=== PATIENT | male | born 1955 | race Caucasian/White ===

== ENCOUNTER → 2019-07-03 08:15 | Outpatient (CLI) | payer BC, SELFPAY ==
[2019-07-03 10:39] LABS: ALB/GLOB Ratio 1.2 RATIO (0.9-2.4); AST(SGOT) 20 U/L (15-37); Alanine Aminotransfer ALT/SGPT 29 U/L (16-61); Albumin, Serum 3.8 g/dL (3.2-5.0); Alkaline Phosphatase 78 U/L (45-117); Anion Gap 5 (5-15); BUN 10 mg/dL (7-18); BUN/Creat Ratio 11.3 RATIO (10-20); Calcium,Total 8.4 mg/dL (8.5-10.1); Chloride 108 mmol/L (98-107); Cholesterol 192 mg/dL (200); Creatinine, Serum 0.89 mg/dL (0.70-1.30); EST Glomerular Filtration Rate 92 mL/min (>60); Est Glom Filt Rate - Afr Amer 111 mL/min (>60); Globulin 3.1 g/dL (2.2-4.2); Glucose 89 mg/dL (74-106); High Density Lipoprotein 56 mg/dL; Potassium 4.2 mmol/L (3.5-5.1); Protein, Total 6.9 g/dL (6.4-8.2); Sodium Level 141 mmol/L (136-145); Triglycerides 75 mg/dL; Very Low Density Lipoprotein 15 mg/dL (5-40)
== END ==
PROVIDERS: Family Provider Family Medicine; PCP Family Medicine; Referring Provider Family Medicine; Visit Provider Family Medicine
DX: E78.5 Hyperlipidemia, unspecified (principal)
CPT/HCPCS: 36415; 80053; 80061; 86141

== ENCOUNTER → 2019-07-30 11:44 | Outpatient (CLI) | payer BC, SELFPAY ==
--- NOTE | 2019-07-30 11:50 | RAD_ITS ---
STUDY: X-RAY - CERVICAL SPINE REASON FOR EXAM: Male, 64 years old. Neck pain TECHNIQUE: 3 view(s) of the cervical spine were obtained. COMPARISON: None FINDINGS: Normal anterior atlantoaxial articulation. Normal odontoid process. Decreased cervical lordosis. No evidence for acute fracture or subluxation. There is narrowing of C3-4 and C5-6 disc space with associated multilevel endplate spurring. The soft tissue structures are unremarkable. RAD/Cerv Spine 2 or 3 Views IMPRESSION: Mild spondylosis. No evidence for acute fracture or other significant bony pathology. Electronically Signed: Grayson Yeh MD at 16:44 EST , Service support ,
== END ==
PROVIDERS: Family Provider Family Medicine; PCP Family Medicine; Referring Provider Chiropractor Orthopedic; Visit Provider Chiropractor Orthopedic
DX: S16.1XXA Strain of muscle, fascia and tendon at neck level, initial encounter (principal)
CPT/HCPCS: 72040

== ENCOUNTER → 2019-10-12 08:10 | Outpatient (CLI) | payer BC, SELFPAY ==
[2019-10-12 11:11] LABS: CRP, High Sensitivity Cardiac 0.54 mg/L; Cholesterol 126 mg/dL (200); High Density Lipoprotein 51 mg/dL; Triglycerides 69 mg/dL; Very Low Density Lipoprotein 14 mg/dL (5-40)
== END ==
LOC: MFPLAB 08:11
PROVIDERS: PCP Family Medicine; Referring Provider Family Medicine; Visit Provider Family Medicine
DX: R79.82 Elevated C-reactive protein (CRP) (principal)
CPT/HCPCS: 36415; 80061; 86141

== ENCOUNTER → 2020-09-03 | Outpatient (CLI) | payer BC, SELFPAY | END | disposition home or self-care (01) | LOC: LABSPEC 16:04 | PROVIDERS: PCP Family Medicine; Referring Provider Family Medicine; Visit Provider Nurse Practitioner Adult Health | DX: Z20.828 Contact with and (suspected) exposure to other viral communicable diseases (principal) | CPT/HCPCS: 87635; U0003 ==

== ENCOUNTER → 2021-07-09 10:31 | Outpatient (CLI) | payer BC, SELFPAY ==
[2021-07-09 12:31] LABS: Cholesterol 222 mg/dL (200); Creatinine, Serum 0.88 mg/dL (0.70-1.30); EST Glomerular Filtration Rate 92 mL/min (>60); Est Glom Filt Rate - Afr Amer 112 mL/min (>60); High Density Lipoprotein 52 mg/dL; Triglycerides 110 mg/dL; Very Low Density Lipoprotein 22 mg/dL (5-40)
[2021-07-09 13:08] LABS: Hepatitis C Antibody Non-Reactive (Nonreactive)
== END ==
PROVIDERS: PCP Family Medicine; Referring Provider Family Medicine; Visit Provider Family Medicine
DX: Z00.00 Encounter for general adult medical examination without abnormal findings (principal); Z11.59 Encounter for screening for other viral diseases
CPT/HCPCS: 36415; 80061; 82565; 86803

== ENCOUNTER → 2023-07-22 | Outpatient (CLI) | payer MEDICARE, SELFPAY ==
[2023-07-22 10:37] LABS: ALB/GLOB Ratio 1.2 RATIO (0.9-2.4); AST(SGOT) 17 U/L (15-37); Alanine Aminotransfer ALT/SGPT 30 U/L (16-61); Albumin, Serum 3.8 g/dL (3.2-5.0); Alkaline Phosphatase 83 U/L (45-117); Anion Gap 2 (5-15); BUN 5 mg/dL (7-18); BUN/Creat Ratio 5.6 RATIO (10-20); Calcium,Total 8.7 mg/dL (8.5-10.1); Chloride 105 mmol/L (98-107); Cholesterol 220 mg/dL (200); Creatinine, Serum 0.89 mg/dL (0.70-1.30); EST Glomerular Filtration Rate 90 mL/min (>60); Est Glom Filt Rate - Afr Amer 109 mL/min (>60); Globulin 3.3 g/dL (2.2-4.2); Glucose 86 mg/dL (74-106); High Density Lipoprotein 52 mg/dL; Potassium 4.5 mmol/L (3.5-5.1); Protein, Total 7.1 g/dL (6.4-8.2); Sodium Level 137 mmol/L (136-145); Triglycerides 172 mg/dL; Very Low Density Lipoprotein 34 mg/dL (5-40)
== END | disposition home or self-care (01) ==
LOC: MFPLAB 08:13
PROVIDERS: PCP Family Medicine; Visit Provider Family Medicine
DX: E78.5 Hyperlipidemia, unspecified (principal)
CPT/HCPCS: 36415; 80053; 80061

== ENCOUNTER → 2023-07-25 | Outpatient (CLI) | payer MEDICARE, SELFPAY ==
--- NOTE | 2023-07-25 09:58 | RAD_ITS ---
STUDY: X-RAY - LEFT ELBOW REASON FOR EXAM: Male, 68 years old. Lateral left elbow pain. TECHNIQUE: 3 view(s) of the elbow. COMPARISON: None. FINDINGS: Osteopenia. Normal visualized humerus, radius and ulna. Normal radiocapitellar and ulnotrochlear articulations. Normal soft tissues. RAD/Elbow min 3 Views IMPRESSION: Osteopenia. Otherwise normal x-ray examination of the elbow. Electronically Signed: Barry Sosa MD at 13:55 EST ,
== END | disposition home or self-care (01) ==
LOC: MTRAD 09:48
PROVIDERS: PCP Family Medicine; Referring Provider Family Medicine; Visit Provider Family Medicine
DX: M77.12 Lateral epicondylitis, left elbow (principal)
CPT/HCPCS: 73080

== ENCOUNTER → 2023-08-25 | Outpatient (CLI) | payer MEDICARE, SELFPAY ==
--- NOTE | 2023-08-25 10:10 | BD_ITS ---
STUDY: DUAL ENERGY X-RAY ABSORPTIOMETRY / DXA REASON FOR EXAM: Male, 68 years old. 733.90OsteopeniaBONE DENSITY REASON FOR EXAM TECHNIQUE: Bone Mineral Density (BMD) measurements of lumbar spine and bilateral hips were obtained. COMPARISON: None. FINDINGS: Lumbar Spine (L1-L4): g/cm2 (0.959) / T-score (-0.9) / Z-score (-0.1) Findings are suggestive of normal bone density with a low fracture risk. Left Femur Total: g/cm2 (1.039) / T-score (0.0) / Z-score (0.6) Left Femoral Neck: g/cm2 (0.848) / T-score (-0.6) / Z-score (0.5) Right Femur Total: g/cm2 (1.010) / T-score (-0.2) / Z-score (0.4) Right Femoral Neck: g/cm2 (0.791) / T-score (-1.0) / Z-score (0.1) BD/Dexa Bone Density Study IMPRESSION: The patient is considered normal as outlined below according to World Dragan Organization (WHO) criteria with a low fracture risk. Reference Information: The T-score is the number of standard deviations above or below the standard which is normal for young adults at their peak bone mineral density. The World Health Organization (WHO) interprets the T-scores as follows: Above -1 Normal bone density Between -1 and -2.5 Osteopenia Equal to / or below -2.5 Osteoporosis As a practical clinical guideline, osteopenia may be graded as follows: Mild -1 through -1.5 Moderate -1.6 through -2.0 Severe -2.1 through -2.4 The Z-score is the number of standard deviations above or below age-matched controls. A Z-score of less than -1.5 would be considered abnormal. References: 1. NIH Osteoporosis and Related Bone Diseases www osteo.org 2. International Society for Clinical Densitometry www iscd.org 3. National Osteoporosis Foundation www nof.org Electronically Signed: Rafi Hamm MD at 13:27 EST ,
== END | disposition home or self-care (01) ==
PROVIDERS: PCP Family Medicine; Referring Provider Family Medicine; Visit Provider Family Medicine
DX: M85.80 Other specified disorders of bone density and structure, unspecified site (principal)
CPT/HCPCS: 77080

== ENCOUNTER → 2023-10-24 | Outpatient (CLI) | payer MEDICARE, SELFPAY ==
--- OUTSIDE RECORDS SUMMARY | 2023-10-24 08:28 | XMS RPT_ITS | CCD ---
Author Name Unknown Address [address] [place] [address] Organization [facility] Results Test Name Value Interpretation Reference Range Facil ity Summary Purpose Family History No Family History Records Found Advance Directives No Advanced Directives Records Found Additional Source Comments (unrecognized sect ion and content) No Status Records Found INFORMATION SOURCE (unrecogn ized section and content) FOR RECORDS PERTAINING TO PATIENTS WHO ARE OR HAVE BEEN ENROLLED IN A CHEMICAL DEPENDENCY/SUBSTANCEABUSE PROGRAM, SOME INFORMATION MAY BE OMITTED. This clinical summary was aggregated from multiple sources. Caution should be exercised in using it in the provision of clinical care. This summary normalizes information from multiple sources, and as a consequence, information in this document may materially change the coding, format and clinical context of patient data. In addition, data may be omitted in some cases. CLINICAL DECISIONS SHOULD BE BASED ON THE PRIMARY CLINICAL RECORDS. [employer] provides no warranty or guarantee of the accuracy or completeness of information in this document.
[2023-10-24 10:34] LABS: Cholesterol 204 mg/dL (200); High Density Lipoprotein 56 mg/dL; Triglycerides 101 mg/dL; Very Low Density Lipoprotein 20 mg/dL (5-40)
== END | disposition home or self-care (01) ==
LOC: MFPLAB 08:04
PROVIDERS: PCP Family Medicine; Visit Provider Family Medicine
DX: Z12.5 Encounter for screening for malignant neoplasm of prostate (principal); E78.5 Hyperlipidemia, unspecified
CPT/HCPCS: 36415; 80061; 84153; G0103

== ENCOUNTER 2024-03-14 09:42 | Emergency (ER) | payer MEDICARE, SELFPAY ==
[2024-03-14 09:42] VITALS: BP 155/120; PULSE 61; RESP 19; TEMP 35.8; O2SAT 100; BMI 29.3
--- NOTE | 2024-03-14 10:07 | EKG12_ITS ---
Test Reason : Blood Pressure : / mmHG Vent. Rate : 056 BPM Atrial Rate : 056 BPM P-R Int : 238 ms QRS Dur : 086 ms QT Int : 426 ms P-R-T Axes : 029 012 025 degrees QTc Int : 411 ms Sinus bradycardia with 1st degree A-V block Low voltage QRS Borderline ECG Confirmed by Kota Mcfarlane ([id number]), primer expeditor and drier SYDNEY WHITE ([id number]) on 03/15/2024 11:09:50 AM Referred By: Confirmed By:Kota Mcfarlane
--- NOTE | 2024-03-14 10:08 | ED.VIS.CHEST ---
HPI History of Present Illness Chief Complaint: Dizziness Narrative Narrative: 68-year-old male presenting with symptoms of lightheadedness. He states that he had vertigo before and does not feel the same. He states it started just after he woke up this morning and he feels like he is off balance. He states that he has been having a little bit of chest discomfort on the left side for 3 days and has been pretty persistent. He describes it as sharp. Patient states he is also been coughing a lot for the last few days. He has been traveling by car to [place] and [place] to visit people and he does not know if he is an exposed anything. No history of DVT/PE. No history of cardiac disease. 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 Patient also states that he has had some mild numbness in the midfoot on the right foot for 6 months. He has not had this looked at yet. He denies any injury and states that he has been running without any difficulty. PE Risk Factors: Positive for Recent Travel/Surgery; Negative for Recent Immobilization, Prior DVT or PE, Cancer or OCP + Smoking + >/=35 PFSH PFSH Home Medications ?Medication ?Instructions ?Recorded ?Last Taken ?Type meclizine 25 mg tablet 25 mg PO TID PRN dizziness #30 tabs 03/14/24 Unknown Rx Allergy/AdvReac Type Severity Reaction Status Date / Time No Known Allergies Allergy Verified 03/14/24 09:43 Surgical History (Updated 03/14/24 @ 10:24 by Khoi Bowers) History of hernia surgery Hx of cataract surgery Social History Smoking Status: Never smoker ROS ROS ED Constitutional Constitutional ED: Denies chills or fever(s) Eyes Eyes: Denies blurry vision or change in vision ENT ENT ED: Denies ear pain or sore throat Cardiovascular Cardiovascular: Reports chest pain and other Details: Lightheadedness ; Denies palpitations or racing heartbeat Respiratory/Chest Respiratory/Chest: Reports cough; Denies dyspnea or sputum Gastrointestinal Gastrointestinal: Denies abdominal pain, constipation, diarrhea, nausea or vomiting Genitourinary Genitourinary ED: Denies dysuria, hematuria or urinary frequency Musculoskeletal Musculoskeletal: Denies arthralgias, myalgias or neck pain Integumentary Denies abscess, Abrasions or rash Neurologic Neurologic: Reports other; Denies headache(s), paresthesias or weakness Psychiatric Psychiatric: Denies anxiety, depression, suicidal ideation or suicidal thoughts Endocrine Endocrinology: Denies polydipsia or polyuria EXAM Physical Exam Const Vital Signs: 03/14/24 09:42 03/14/24 10:24 03/14/24 11:16 Temperature 96.4 F L Temperature Source Temporal Pulse Rate 61 Pulse Rate [Lying] 63 Pulse Rate [Sitting (for 1 minute prior to obtaining)] 61 Pulse Rate [Standing (for 1 minute prior to obtaining)] 61 Respiratory Rate 19 H Blood Pressure 155/120 H Blood Pressure [Lying] 131/83 H Blood Pressure [Sitting (for 1 minute prior to obtaining)] 142/89 H Blood Pressure [Standing (for 1 minute prior to obtaining)] 142/89 H Blood Pressure Mean 131 Blood Pressure Mean [Lying] 99 Blood Pressure Mean [Sitting (for 1 minute prior to obtaining)] 106 Blood Pressure Mean [Standing (for 1 minute prior to obtaining)] 106 Pulse Ox 100 Oxygen Delivery Method Room Air Room Air 03/14/24 11:52 Temperature Temperature Source Pulse Rate 55 L Pulse Rate [Lying] Pulse Rate [Sitting (for 1 minute prior to obtaining)] Pulse Rate [Standing (for 1 minute prior to obtaining)] Respiratory Rate 12 Blood Pressure 142/79 H Blood Pressure [Lying] Blood Pressure [Sitting (for 1 minute prior to obtaining)] Blood Pressure [Standing (for 1 minute prior to obtaining)] Blood Pressure Mean 100 Blood Pressure Mean [Lying] Blood Pressure Mean [Sitting (for 1 minute prior to obtaining)] Blood Pressure Mean [Standing (for 1 minute prior to obtaining)] Pulse Ox Oxygen Delivery Method Positive well nourished General Appearance ED: NAD; Negative for pallor HEENT Reports moist mucous membranes Eyes PERRL and EOMs intact bilaterally Chest Wall inspection of chest normal and palpation of chest normal Resp normal respiratory effort and clear to auscultation bilaterally Auscultation: Negative for rales, rhonchi or wheezes Cardio regular rate and regular rhythm Extremity Extremity Narrative: There is some numbness in the dorsum of the right midfoot which does not extend into the toes. Pedal pulses 2+. Otherwise neurovascular intact with prescribed refill all 5 toes. No tenderness. Neuro oriented x3 and CN's II-XII intact bilaterally Sensorium / Orientation: awake and alert Psych mental status grossly normal Skin General Skin Exam: Negative for jaundice or pallor MDM MDM MDM Narrative Medical decision making narrative: Patient presenting with chest pain and lightheadedness. He states the chest pain started first about 3 days ago when he woke up this morning with lightheadedness. On examination when I do the Jaycob-Hallpike procedure he does have nystagmus but he states his dizziness has not worsened with the [place]-Hallpike. Differential includes but is not limited to ACS, PE, pneumonia, pneumothorax, muscle strain, costochondritis, COVID, influenza, RSV, orthostatic hypotension, vertigo. CBC will be obtained to assess white blood cell count, hemoglobin, platelets. BMP to assess renal function, electrolytes, glucose. High-sensitivity troponin and EKG to assess for ischemia/dysrhythmia. Chest x-ray to rule out pneumonia. D-dimer to assess for PE. Patient is nauseous so I will give him meclizine and Zofran to see if this actually helps his dizziness. As far as his foot numbness we discussed this at length and I will give him follow-up with podiatry if he wants to pursue the problem. He is amenable to this. 11:31 AM discussed patient's lab work with him. We discussed that his blood work was relatively normal and his D-dimer was negative. High-sensitivity opponent 6. EKG interpreted by myself shows a sinus rhythm at 56 bpm with first-degree AV block. Chest x-ray on my interpretation I do not see anything acute however the radiologist thinks he sees a nodular opacity in the right lung and recommends a lateral view which was ordered. This is pending. COVID, RSV, influenza negative. He was obtained and has no evidence of nodule or other acute findings on my interpretation. Radiology interpretation agrees. Patient is feeling better with the meclizine so I will find a prescription for this. I would have him follow-up with podiatry for his foot. Lab Data Labs: Laboratory Results - last 24 hr 03/14/24 10:15 WBC 7.5 RBC 4.61 Hgb 14.0 Hct 41.4 MCV 89.8 MCH 30.4 MCHC 33.8 RDW Std Deviation 40.6 RDW Coeff of [place] 12.3 Plt Count 335 MPV 8.0 Immature Gran % (Auto) 0.500 Neut % (Auto) 83.4 H Lymph % (Auto) 9.4 L Taylor % (Auto) 5.9 Eos % (Auto) 0.5 Baso % (Auto) 0.3 Absolute Neuts (auto) 6.3 Absolute Lymphs (auto) 0.71 L Nucleated RBC % 0 D-Dimer Quant (PE/DVT) 0.37 Sodium 133 L Potassium 4.0 Chloride 103 Carbon Dioxide 25.0 Anion Gap 5 BUN 5 L Creatinine 0.83 Estim Creat Clear Calc 104.79 Est GFR (MDRD) Af Amer 119 Est GFR (MDRD) Non-Af 99 BUN/Creatinine Ratio 6.1 L Glucose 128 H Calcium 8.6 Troponin I High Sens 6 Radiography Diagnostic Testing: Clinical Impression(s) from Imaging Studies Chest X-Ray 03/14/24 10:45 IMPRESSION: Indeterminate nodular opacity within the right upper lung, may reflect a confluence of shadows, recommend PA and lateral images for further evaluation. Electronically Signed: Alia Burgos MD at 10:56 EDT Reading Location ID and State: [facility] / [place] Tel , Service support , Chest X-Ray 03/14/24 11:40 IMPRESSION: No radiographic evidence of acute cardiopulmonary disease. Electronically Signed: Alia Burgos MD at 12:00 EDT , Discharge Plan Triage Chief Complaint: Dizziness ED Provider: Reece Galeano Dx/Rx/DC Orders Instructions: ED Chest Pain, Noncardiac, ED Vertigo, Unspecified, ED Paraesthesias Prescriptions: New meclizine 25 mg tablet 25 mg PO TID PRN (Reason: dizziness) Qty: 30 0RF Primary Care Provider: Baldev Brito Referrals: Baldev Brito MD [Primary Care Provider] - Garry Resendiz DPM [Med Staff - Active Staff] - As Needed Print Language: Citizen Of [place] Disposition Disposition: Home, Self Care
--- NOTE | 2024-03-14 10:11 | ED.RN ---
NO OLD EKGS
[2024-03-14] MEDS: Ondansetron 4 MG/2 ML Vial IV (10:19)
[2024-03-14] MEDS: Meclizine HCl 25 MG Tablet PO (10:19)
[2024-03-14 10:28] LABS: Absolute Lymphocyte Count 0.71 X10^3/uL (0.83-4.51); Absolute Neutrophil Count 6.3 X10^3/uL (2.0-7.7); Basophil# 0.02 X10^3/uL; Basophil% 0.3 % (0-1); Eosinophil# 0.04 X10^3/uL; Eosinophils% 0.5 % (0-5); Hematocrit 41.4 % (40-54); Lymphocyte # 0.71 X10^3/ul (0.83-4.51); Lymphocyte % 9.4 % (19-41); Mean Corp Hgb Conc 33.8 g/dL (32-36); Mean Corpuscular Hgb 30.4 pg (27.0-32.0); Mean Corpuscular Volume 89.8 fL (80-94); Monocyte# 0.44 X10^3/uL; Monocyte% 5.9 % (0-10); NRBC Flagged by Analyzer 0 % (0-5); Neutrophil # 6.27 X10^3/uL (2.7-7.7); Neutrophil % 83.4 % (47-70); Platelet Count 335 K/mm3 (150-450); RBC Distribution Width CV 12.3 % (11.6-14.6); RBC Distribution Width SD 40.6 fl (35.1-43.9); Red Blood Count 4.61 M/mm3 (4.6-6.2); White Blood Count 7.5 K/mm3 (4.4-11.0)
[2024-03-14 10:38] LABS: D-Dimer Quantitative (DVT/PE) 0.37 FEU/ug/m (0.27-0.49)
--- NOTE | 2024-03-14 10:45 | RAD_ITS ---
INDICATION: chest pain EXAMINATION/TECHNIQUE: X-RAY - XR Chest 1 View COMPARISON: CT of the abdomen and pelvis dated March 08, 2006 FINDINGS: LINES/DEVICES: None. LUNGS: There is a nodular opacity within the right upper lung. There is stable elevation of the right hemidiaphragm. No pneumothorax. MEDIASTINUM AND CARDIOVASCULAR STRUCTURES: Cardiac silhouette not enlarged. Central airways and mediastinal contour are unremarkable. BONES AND SOFT TISSUES: Unremarkable. RAD/Chest 1 View (Portable) IMPRESSION: Indeterminate nodular opacity within the right upper lung, may reflect a confluence of shadows, recommend PA and lateral images for further evaluation. Electronically Signed: Alia Burgos MD at 10:56 EDT ,
[2024-03-14 10:50] LABS: Anion Gap 5 (5-15); BUN 5 mg/dL (7-18); BUN/Creat Ratio 6.1 RATIO (10-20); Calcium,Total 8.6 mg/dL (8.5-10.1); Chloride 103 mmol/L (98-107); Creatinine, Serum 0.83 mg/dL (0.70-1.30); EST Glomerular Filtration Rate 99 mL/min (>60); Est Glom Filt Rate - Afr Amer 119 mL/min (>60); Estimated Creatinine Clearance 104.79 ml/min; Glucose 128 mg/dL (74-106); Sodium Level 133 mmol/L (136-145); Troponin-I HS 6 pg/mL (3.0-78.0)
[2024-03-14 11:16] VITALS: BP 131/83; BP 142/89; PULSE 61; PULSE 63
--- NOTE | 2024-03-14 11:40 | RAD_ITS ---
INDICATION: cough EXAMINATION/TECHNIQUE: X-RAY - XR Chest 1 lateral image COMPARISON: Prior study dated: CT of the abdomen and pelvis dated March 08, 2006 FINDINGS: LINES/DEVICES: None. LUNGS: No consolidation, edema or effusion. No pneumothorax. MEDIASTINUM AND CARDIOVASCULAR STRUCTURES: Cardiac silhouette not enlarged. Central airways and mediastinal contour are unremarkable. BONES AND SOFT TISSUES: Unremarkable. RAD/Chest 1 View IMPRESSION: No radiographic evidence of acute cardiopulmonary disease. Electronically Signed: Alia Burgos MD at 12:00 EDT ,
[2024-03-14 11:52] VITALS: BP 142/79; PULSE 55; RESP 12
[2024-03-14 12:31] VITALS: BP 127/97; PULSE 58; RESP 17; TEMP 36.6; O2SAT 100
== END 2024-03-14 12:32 | disposition home or self-care (01) ==
PROVIDERS: Emergency Provider Student in an Organized Health Care Education/Training Program; PCP Family Medicine; Visit Provider Student in an Organized Health Care Education/Training Program
DX: R42 Dizziness and giddiness (principal); R07.9 Chest pain, unspecified; R11.0 Nausea; R20.0 Anesthesia of skin; R05.9 Cough, unspecified
CPT/HCPCS: 71045; 80048; 84484; 85025; 85379; 87631; 93005; 96374; 99285; A4216; J2405

== ENCOUNTER → 2024-07-26 | Outpatient (CLI) | payer MEDICARE, SELFPAY ==
[2024-07-26 12:22] LABS: Cholesterol 194 mg/dL (200); Creatinine, Serum 0.89 mg/dL (0.70-1.30); EST Glomerular Filtration Rate 91 mL/min (>60); Est Glom Filt Rate - Afr Amer 110 mL/min (>60); High Density Lipoprotein 52 mg/dL; PSA,Total- Diagnostic 0.65 ng/mL (0.0-4.0); Triglycerides 163 mg/dL; Very Low Density Lipoprotein 33 mg/dL (5-40)
== END | disposition home or self-care (01) ==
LOC: MFPLAB 09:52
PROVIDERS: PCP Family Medicine; Visit Provider Family Medicine
DX: Z00.00 Encounter for general adult medical examination without abnormal findings (principal)
CPT/HCPCS: 36415; 80061; 82565; 84153

== ENCOUNTER → 2025-09-05 | Outpatient (CLI) | payer MEDICARE, SELFPAY ==
--- NOTE | 2025-09-05 06:47 | CT_ITS ---
PROCEDURE: LIMITED CHEST CT CARDIAC ONLY 09/05/2025 REASON FOR EXAM: CARDIAC RISK > 15%. GAVE METOPROLOL RX TECHNIQUE: Procedure Code: [id number] Modality: CT Procedure: LIMITED CHEST CT CARDIAC ONLY CONTRAST: None One or more dose reduction techniques were used (e.g., Automated exposure control, adjustment of the mA and/or kV according to patient size, use of iterative reconstruction technique). RADIATION DOSE SUMMARY: CTDlvol: 12.19 mGy DLP: 219.42 mGycm COMPARISON: None FINDINGS: Calcified bilateral hilar lymph nodes. Coronary artery calcification. The heart is nonenlarged. Scattered calcified right granulomas. CT/Limited Chest CT Cardiac Only IMPRESSION: Coronary artery calcification. Reading Location: [id number]
--- OUTSIDE RECORDS SUMMARY | 2025-09-05 06:48 | XMS RPT_ITS | CCD ---
Author Organization [facility] Care Team Providers Care Materials Coordinator Name Role Phone Baldev Brito Primary Care Unavailable Baldev Brito Referring Unavailable Baldev Brito Attending Unavailable Daryl, Baldev Primary Care Unavailable Daryl, Baldev Attending Unavailable Daryl, Baldev Primary Care Unavailable Reece Galeano Attending Unavailable Daryl, Baldev Attending Unavailable Daryl, Baldev Primary Care Unavailable Problems Problem Classification Problem Date Documented Da te Episodic/Chronic Conditions associated with dizziness or vertigo (1 source) Dizziness and giddiness; Translations: [Dizziness and giddiness] Onset: 03-20-2024 Episodic Other bone disease and musculoskeletal deformities (1 source) Other specified disorders of bone density and structure, unspecified site; Translations: [Other specified disorders of bone density and structure, unspecified site] Onset: 08-30-2023 Episodic Other screening for suspected conditions (not mental disorders or infectious disease) (1 source) Encounter for screening for malignant neoplasm of prostate; Translations: [Encounter for screening for malignant neoplasm of prostate] Onset: 10-28-2023 Episodic Results Test Name Value Interpretation Reference Range Facility Lipid Profileon 07-26-2024 Cholesterol [Mass/Vol] 194 mg/dL Normal 200 [facility] Comment on above: Result Comment: <200 mg/dL Desirable 200-240 mg/dL Borderline >240 mg/dL High Risk Performed By: #### L 500.4100, L501.1105, L501.9940 #### [facility] [address] [place], [address] Cholesterol in HDL [Mass/Vol] 52 mg/dL Normal [facility] Comment on above: Result Comment: The drugs N-Acetylcysteine and Metamizole may falsely depress this assay. Reference Range HDL <40 mg/dL Low HDL Cholesterol HDL >or= 60 mg/dL High HDL Cholesterol Performed By: #### L 500.4100, L501.1105, L501.9940 #### [facility] [address] [place], [address] Cholesterol in LDL [Mass/Vol] 109 mg/dL Normal 0-130 [facility] Comment on above: Performed By: #### L 500.4100, L501.1105, L501.9940 #### [facility] [address] [place], [address] Cholesterol in VLDL [Mass/Vol] 33 mg/dL Normal 5-40 [facility] Comment on above: Performed By: #### L 500.4100, L501.1105, L501.9940 #### [facility] [address] [place], [address] Triglyceride [Mass/Vol] 163 mg/dL Normal [facility] Comment on above: Result Comment: The drugs N-Acetylcysteine and Metamizole may falsely depress this assay. Serum Triglycerides Reference Interval Normal <150 mg/dL Borderline high 150 - 199 mg/dL High 200 - 499 mg/dL Very High > or = 500 mg/dL Performed By: #### L 500.4100, L501.1105, L501.9940 #### [facility] [address] [place], [address] PSA,Total- Diagnosticon 11-0 PSA, DIAGNOSTIC 0.65 ng/mL Normal 0.0-4.0 [facility] Comment on above: Result Comment: This test was performed using the TPSA assay method for the [employer] chemistry system. Values obtained with different assay methods cannot be used interchangably. When changing PSA assays in the course of monitoring a patient, additional sequential testing should be carried out to confirm baseline values. Performed By: #### L 500.4100, L501.1105, L501.9940 #### [facility] [address] [place], [address] Serum Creatinine AND GFRon 1 09-25-2023 Creatinine [Mass/Vol] 0.89 mg/dL Normal 0.70-1.30 [facility] Comment on above: Result Comment: The validity of the calculated GFR GFRAA in patients over 70 years has not been determined. Clinical correlation is essential. Performed By: #### L 500.4100, L501.1105, L501.9940 #### [facility] [address] [place], [address] EST GFR - AA 110 mL/min Normal >60 [facility] Comment on above: Result Comment: Afri can Comoran GFR Calc Performed By: #### L 500.4100, L501.1105, L501.9940 #### [facility] [address], [address] GFR/1.73 sq M.predicted among non-blacks MDRD (S/P/Bld) [Vol rate/Area] 91 mL/min/{1.73_m2} Normal >60 [facility] Comment on above: Result Comment: Non- GFR Calc Performed By: #### L 500.4100, L501.1105, L501.9940 #### [facility] [address], [address] 12 Lead EKGon 03-14-2024 12 Lead EKG [facility] Cardiovascular Services [address] [place] [address] 12 Lead EKG 03/14/24 1016 MR#: [id number] Acct: [id number] Name: ALEXSANDRA DONOVAN Rep #: [id number] : 1955 68 From: Kota Mcfarlane MD Attending Dr: Status: DEP ER Ordering Dr: Reece Galeano DO Date: 03/14/24 Location: ED Sex: M C Admitted: Test Reason : Blood Pressure : / mmHG Vent. Rate : 056 BPM Atrial Rate : 056 BPM P-R Int : 238 ms QRS Dur : 086 ms QT Int : 426 ms P-R-T Axes : 029 012 025 degrees QTc Int : 411 ms Sinus bradycardia with 1st degree A-V block Low voltage QRS Borderline ECG Confirmed by Kota Mcfarlane ([id number]), video tape editor SYDNEY WHITE ([id number]) on 03/15/2024 11:09:50 AM Referred By: Confirmed By:Kota Mcfarlane 03/15/24 1109 Date Kota Mcfarlane MD CC: Dr. Reece Galeano, DO; Dr. Baldev Brito MD Signed Normal [facility] Basic Metabolic Profile (BMP )on 03-14-2024 BUN/CRE 6.1 RATIO Low 10-20 [facility] Comment on above: Order Comment: 'TROP ' Serial specimen #1, #2 or #3: 1 Performed By: #### L 501.4020, L100.0100, L300.8000, L500.2500 ####[facility] [address] [place], [address] CA,Total 8.6 mg/dL Normal 8.5-10.1 [facility] Comment on above: Order Comment: 'TROP ' Serial specimen #1, #2 or #3: 1 Performed By: #### L 501.4020, L100.0100, L300.8000, L500.2500 ####[facility] [address] [place], [address] Chloride [Moles/Vol] 103 mmol/L Normal 98-107 [facility] Comment on above: Order Comment: 'TROP ' Serial specimen #1, #2 or #3: 1 Performed By: #### L 501.4020, L100.0100, L300.8000, L500.2500 ####[facility] [address] [place], [address] CO2 [Moles/Vol] 25.0 mmol/L Normal 21.0-32.0 [facility] Comment on above: Order Comment: 'TROP ' Serial specimen #1, #2 or #3: 1 Performed By: #### L 501.4020, L100.0100, L300.8000, L500.2500 ####[facility] [address] [place], [address] Creatinine [Mass/Vol] 0.83 mg/dL Normal 0.70-1.30 [facility] Comment on above: Order Comment: 'TROP ' Serial specimen #1, #2 or #3: 1 Result Comment: The validity of the calculated GFR GFRAA in patients over 70 years has not been determined. Clinical correlation is essential. Performed By: #### L 501.4020, L100.0100, L300.8000, L500.2500 ####[facility] [address] [place], [address] ECRCL 104.79 ml/min Normal [facility] Comment on above: Order Comment: 'TROP ' Serial specimen #1, #2 or #3: 1 Performed By: #### L 501.4020, L100.0100, L300.8000, L500.2500 ####[facility] [address] [place], [address] EST GFR - AA 119 mL/min Normal >60 [facility] Comment on above: Order Comment: 'TROP ' Serial specimen #1, #2 or #3: 1 Result Comment: Afri can Comoran GFR Calc Performed By: #### L 501.4020, L100.0100, L300.8000, L500.2500 ####[facility] [address] [place], [address] GAP 5 Normal 5-15 [facility] Comment on above: Order Comment: 'TROP ' Serial specimen #1, #2 or #3: 1 Performed By: #### L 501.4020, L100.0100, L300.8000, L500.2500 ####[facility] [address] [place], [address] GFR/1.73 sq M.predicted among non-blacks MDRD (S/P/Bld) [Vol rate/Area] 99 mL/min/{1.73_m2} Normal >60 [facility] Comment on above: Order Comment: 'TROP ' Serial specimen #1, #2 or #3: 1 Result Comment: Non- GFR Calc Performed By: #### L 501.4020, L100.0100, L300.8000, L500.2500 ####[facility] [address] [place], [address] Glucose [Mass/Vol] 128 mg/dL High 74-106 [facility] Comment on above: Order Comment: 'TROP ' Serial specimen #1, #2 or #3: 1 Result Comment: Fast ing Glucose result greater than or equal to 126 mg/dL suggests DIABETES MELLITUS per A.D.A. criteria. Performed By: #### L 501.4020, L100.0100, L300.8000, L500.2500 ####[facility] [address] [place], [address] Potassium [Moles/Vol] 4.0 mmol/L Normal 3.5-5.1 [facility] Comment on above: Order Comment: 'TROP ' Serial specimen #1, #2 or #3: 1 Performed By: #### L 501.4020, L100.0100, L300.8000, L500.2500 ####[facility] [address] [place], [address] Sodium [Moles/Vol] 133 mmol/L Low 136-145 [facility] Comment on above: Order Comment: 'TROP ' Serial specimen #1, #2 or #3: 1 Performed By: #### L 501.4020, L100.0100, L300.8000, L500.2500 ####[facility] [address] [place], [address] Urea nitrogen [Mass/Vol] 5 mg/dL Low 7-18 [facility] Comment on above: Order Comment: 'TROP ' Serial specimen #1, #2 or #3: 1 Performed By: #### L 501.4020, L100.0100, L300.8000, L500.2500 ####[facility] [address] [place], [address] CBC W/Diff, Automatedon 06-2 -2023 Absolute Lymph 0.71 X10 3/uL Low 0.83-4.51 [facility] Comment on above: Performed By: #### L 501.4020, L100.0100, L300.8000, L500.2500 ####[facility] [address] [place], [address] Absolute Neut 6.3 X10 3/uL Normal 2.0-7.7 [facility] Comment on above: Performed By: #### L 501.4020, L100.0100, L300.8000, L500.2500 ####[facility] [address] [place], [address] Basophils/100 WBC (Bld) 0.3 % Normal 0-1 [facility] Comment on above: Performed By: #### L 501.4020, L100.0100, L300.8000, L500.2500 ####[facility] [address] [place], [address] Eosinophils/100 WBC (Bld) 0.5 % Normal 0-5 [facility] Comment on above: Performed By: #### L 501.4020, L100.0100, L300.8000, L500.2500 ####[facility] [address] [place], [address] Erythrocyte distribution width (RBC) [Ratio] 12.3 % Normal 11.6-14.6 [facility] Comment on above: Performed By: #### L 501.4020, L100.0100, L300.8000, L500.2500 ####[facility] [address] [place], [address] Hematocrit (Bld) [Volume fraction] 41.4 % Normal 40-54 [facility] Comment on above: Performed By: #### L 501.4020, L100.0100, L300.8000, L500.2500 ####[facility] [address] [place], [address] Hemoglobin (Bld) [Mass/Vol] 14.0 g/dL Normal 13.0-16.5 [facility] Comment on above: Performed By: #### L 501.4020, L100.0100, L300.8000, L500.2500 ####[facility] [address] [place], [address] IG% 0.500 Normal 0.0-0.9 [facility] Comment on above: Result Comment: IG% - Immature Granulocytes (promyelocytes, myelocytes and metamyelocytes) > 1% indicates that a LEFT SHIFT is Present. Performed By: #### L 501.4020, L100.0100, L300.8000, L500.2500 ####[facility] [address] [place], [address] Lymphocytes/100 WBC (Bld) 9.4 % Low 19-41 [facility] Comment on above: Performed By: #### L 501.4020, L100.0100, L300.8000, L500.2500 ####[facility] [address] [place], [address] MCH (RBC) [Entitic mass] 30.4 pg Normal 27.0-32.0 [facility] Comment on above: Performed By: #### L 501.4020, L100.0100, L300.8000, L500.2500 ####[facility] [address] [place], [address] MCHC (RBC) [Mass/Vol] 33.8 g/dL Normal 32-36 [facility] Comment on above: Performed By: #### L 501.4020, L100.0100, L300.8000, L500.2500 ####[facility] [address] [place], [address] MCV (RBC) [Entitic vol] 89.8 fL Normal 80-94 [facility] Comment on above: Performed By: #### L 501.4020, L100.0100, L300.8000, L500.2500 ####[facility] [address] [place], [address] Monocytes/100 WBC (Bld) 5.9 % Normal 0-10 [facility] Comment on above: Performed By: #### L 501.4020, L100.0100, L300.8000, L500.2500 ####[facility] [address] [place], [address] Neutrophils/100 WBC (Bld) 83.4 % High 47-70 [facility] Comment on above: Performed By: #### L 501.4020, L100.0100, L300.8000, L500.2500 ####[facility] [address] [place], [address] Nucleated RBC (Bld) [#/Vol] 0 10*3/uL Normal 0-5 [facility] Comment on above: Performed By: #### L 501.4020, L100.0100, L300.8000, L500.2500 ####[facility] [address] [place], [address] Platelet mean volume (Bld) [Entitic vol] 8.0 fL Normal 6.2-12.0 [facility] Comment on above: Performed By: #### L 501.4020, L100.0100, L300.8000, L500.2500 ####[facility] [address] [place], [address] Platelets (Bld) [#/Vol] 335 10*3/uL Normal 150-450 [facility] Comment on above: Performed By: #### L 501.4020, L100.0100, L300.8000, L500.2500 ####[facility] [address] [place], [address] RBC (Bld) [#/Vol] 4.61 10*6/uL Normal 4.6-6.[address] [facility] Comment on above: Performed By: #### L 501.4020, L100.0100, L300.8000, L500.2500 ####[facility] [address] [place], [address] RDW SD 40.6 fl Normal 35.1-43.9 [facility] Comment on above: Performed By: #### L 501.4020, L100.0100, L300.8000, L500.2500 ####[facility] [address] [place], [address] WBC (Bld) [#/Vol] 7.5 10*3/uL Normal 4.4-11.0 [facility] Comment on above: Performed By: #### L 501.4020, L100.0100, L300.8000, L500.2500 ####[facility] [address] [place], [address] Chest 1 Viewon 03-14-2024 Chest 1 View [facility] Imaging Services [address] [place] [address] Chest 1 View MR#: [id number] Acct: [id number] Name: ALEXSANDRA DONOVAN Rep #: [id number] : 1955 M 68 From: Alia Burgos MD PCP: Dr. Baldev Brito MD Status: [facility] ER Study: Chest 1 View Date of Exam: 03/14/24 Exam# [id number] Ordering Dr: Reece Galeano DO [id number] INDICATION: cough EXAMINATION/TECHNIQU E: X-RAY - XR Chest 1 lateral image COMPARISON: Prior study dated: CT of the abdomen and pelvis dated March 08, 2006 ____ FINDINGS: LINES/DEVICES: None. LUNGS: No consolidation, edema or effusion. No pneumothorax. MEDIASTINUM AND CARDIOVASCULAR STRUCTURES: Cardiac silhouette not enlarged. Central airways and mediastinal contour are unremarkable. BONES AND SOFT TISSUES: Unremarkable. RAD/Chest 1 View IMPRESSION: No radiographic evidence of acute cardiopulmonary disease. Electronically Signed: Alia Burgos MD at 12:00 EDT , CC: Dr. Reece Galeano DO; Dr. Baldev Brito MD Chop Saw Operator: Signed Normal [facility] Chest 1 View (Portable)on Chest 1 View (Portable) [facility] Imaging Services [address] [place] [address] Chest 1 View (Portable) MR#: [id number] Acct: [id number] Name: ALEXSANDRA DONOVAN Rep #: [id number] : 1955 M 68 From: Alia Burgos MD PCP: Dr. Baldev Brito MD Status: [facility] Study: Chest 1 View (Portable) Date of Exam: 03/14/24 Exam# [id number] Ordering Dr: Reece Galeano DO [id number] INDICATION: chest pain EXAMINATION/TECHNIQU E: X-RAY - XR Chest 1 View COMPARISON: CT of the abdomen and pelvis dated March 08, 2006 ____ FINDINGS: LINES/DEVICES: None. LUNGS: There is a nodular opacity within the right upper lung. There is stable elevation of the right hemidiaphragm. No pneumothorax. MEDIASTINUM AND CARDIOVASCULAR STRUCTURES: Cardiac silhouette not enlarged. Central airways and mediastinal contour are unremarkable. BONES AND SOFT TISSUES: Unremarkable. RAD/Chest 1 View (Portable) IMPRESSION: Indeterminate nodular opacity within the right upper lung, may reflect a confluence of shadows, recommend PA and lateral images for further evaluation. Electronically Signed: Alia Burgos MD at 10:56 EDT , CC: Dr. eRece Galeano DO; Dr. Baldev Brito MD Chop Saw Operator: Signed Normal [facility] D-Dimer Quantitative (DVT/PE )on 03-14-2024 D-DIMER QUANT 0.37 FEU/ug/m Normal 0.27-0.49 [facility] Comment on above: Result Comment: NORM AL D-Dimer level (<0.50) indicates no DVT or PE. Performed By: #### L 501.4020, L100.0100, L300.8000, L500.2500 ####[facility] [address] [facility] [place], [address] Emergency Department Summary on 03-14-2024 Emergency Department Summary [facility] Medical Records Department [address] [place] [address] Emergency Department Summary 03/14/24 MR#: [id number] Acct: [id number] Name: ALEXSANDRA DONOVAN Rep #: [id number] : 1955 68 From: Reece Galeano DO PCP: Dr. Baldev Brito MD Status:REG ER Location: ED HPI History of Present Illness Chief Complaint: Dizziness Narrative Narrative: 68-year-old male presenting with symptoms of lightheadedness. He states that he had vertigo before and does not feel the same. He states it started just after he woke up this morning and he feels like he is off balance. He states that he has been having a little bit of chest discomfort on the left side for 3 days and has been pretty persistent. He describes it as sharp. Patient states he is also been coughing a lot for the last few days. He has been traveling by car to [place] and [place] to visit people and he does not know if he is an exposed anything. No history of DVT/PE. No history of cardiac disease. 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 Patient also states that he has had some mild numbness in the midfoot on the right foot for 6 months. He has not had this looked at yet. He denies any injury and states that he has been running without any difficulty. PE Risk Factors: Positive for Recent Travel/Surgery; Negative for Recent Immobilization, Prior DVT or PE, Cancer or OCP + Smoking + >/=35 PFSH PFSH Home Medications ???Medication ???Instructions ???Recorded ???Last Taken ???Type meclizine 25 mg tablet 25 mg PO TID PRN dizziness #30 tabs 03/14/24 Unknown Rx Allergy/AdvReac Type Severity Reaction Status Date / Time No Known Allergies Allergy Verified 03/14/24 09:43 Surgical History (Updated 03/14/24 @ 10:24 by Khoi Bowers) History of hernia surgery Hx of cataract surgery Social History Smoking Status: Never smoker ROS ROS ED Constitutional Constitutional ED: Denies chills or fever(s) Eyes Eyes: Denies blurry vision or change in vision ENT ENT ED: Denies ear pain or sore throat Cardiovascular Cardiovascular: Reports chest pain and other Details: Lightheadedness ; Denies palpitations or racing heartbeat Respiratory/Chest Respiratory/Chest: Reports cough; Denies dyspnea or sputum Gastrointestinal Gastrointestinal: Denies abdominal pain, constipation, diarrhea, nausea or vomiting Genitourinary Genitourinary ED: Denies dysuria, hematuria or urinary frequency Musculoskeletal Musculoskeletal: Denies arthralgias, myalgias or neck pain Integumentary Denies abscess, Abrasions or rash Neurologic Neurologic: Reports other; Denies headache(s), paresthesias or weakness Psychiatric Psychiatric: Denies anxiety, depression, suicidal ideation or suicidal thoughts Endocrine Endocrinology: Denies polydipsia or polyuria EXAM Physical Exam Const Vital Signs: 03/14/24 09:42 03/14/24 10:24 03/14/24 11:16 Temperature 96.4 F L Temperature Source Temporal Pulse Rate 61 Pulse Rate [Lying] 63 Pulse Rate [Sitting (for 1 minute prior to obtaining)] 61 Pulse Rate [Standing (for 1 minute prior to obtaining)] 61 Respiratory Rate 19 H Blood Pressure 155/120 H Blood Pressure [Lying] 131/83 H Blood Pressure [Sitting (for 1 minute prior to obtaining)] 142/89 H Blood Pressure [Standing (for 1 minute prior to obtaining)] 142/89 H Blood Pressure Mean 131 Blood Pressure Mean [Lying] 99 Blood Pressure Mean [Sitting (for 1 minute prior to obtaining)] 106 Blood Pressure Mean [Standing (for 1 minute prior to obtaining)] 106 Pulse Ox 100 Oxygen Delivery Method Room Air Room Air 03/14/24 11:52 Temperature Temperature Source Pulse Rate 55 L Pulse Rate [Lying] Pulse Rate [Sitting (for 1 minute prior to obtaining)] Pulse Rate [Standing (for 1 minute prior to obtaining)] Respiratory Rate 12 Blood Pressure 142/79 H Blood Pressure [Lying] Blood Pressure [Sitting (for 1 minute prior to obtaining)] Blood Pressure [Standing (for 1 minute prior to obtaining)] Blood Pressure Mean 100 Blood Pressure Mean [Lying] Blood Pressure Mean [Sitting (for 1 minute prior to obtaining)] Blood Pressure Mean [Standing (for 1 minute prior to obtaining)] Pulse Ox Oxygen Delivery Method Positive well nourished General Appearance ED: NAD; Negative for pallor HEENT Reports moist mucous membranes Eyes PERRL and EOMs intact bilaterally Chest Wall inspection of chest normal and palpation of chest normal Resp normal respiratory effort and clear to auscultation bilaterally Auscultation: Negative for rales, rhonchi or wheezes Cardio regular rate and regular rhythm Extremity Extremity Narrative: There is (more content not included)... Normal [facility] L501.4020on 03-14-2024 TROPONIN-I HS 6 pg/mL Normal 3.0-78.0 [facility] Comment on above: Order Comment: 'TROP ' Serial specimen #1, #2 or #3: 1 Result Comment: Suzie mtz Note: New Test Units and Gender Specific Reference Ranges. For more information see Policy Stat Procedure [facility] High Sensitivity Troponin (TNIH) and attachments. Performed By: #### L 501.4020, L100.0100, L300.8000, L500.2500 ####[facility] [address], [address] M100.678on 03-14-2024 M100.678 SARS-CoV-2 (COVID 19) Negative INFLUENZA A Negative INFLUENZA B Negative RSV PCR Negative Normal [facility] Comment on above: Performed By: #### M 100.678 #### [facility] [address], [address] Basophil percentageOrdered B y: Baldev Brito on 10-24-2023 Cholesterol [Mass/Vol] 204 mg/dL <200 [facility] Comment on above: <200 mg/dL Desirable 200-240 mg/dL Borderline >240 mg/dL High Risk Triglyceride [Mass/Vol] 101 mg/dL <199 [facility] Comment on above: The drugs N-Acetylcy steine and Metamizole may falsely depress this assay.Serum Triglycerides Reference Interval Normal <150 mg/dL Borderline high 150 - 199 mg/dL High 200 - 499 mg/dL Very High > or = 500 mg/dL Laboratory - Chemistry and C hemistry - challengeOrdered By: Baldevcarola Brito on 10-24-2023 Cholesterol in HDL [Mass/Vol] 56 mg/dL >40 [facility] Comment on above: The drugs N-Acetylcy steine and Metamizole may falsely depress this assay. Reference Range HDL <40 mg/dL Low HDL Cholesterol HDL >or= 60 mg/dL High HDL Cholesterol Cholesterol in LDL [Mass/Vol] 128 mg/dL 0-130 [facility] Prostate specific Ag IA [Mass/Vol] 1.00 ng/mL 0.00-4.00 [facility] Comment on above: This test was perfor med using the TPSA assay method for the[employer] chemistry system. Values obtained with differentassay methods cannot be used interchangably.When changing PSA assays in the course of monitoring apatient, additional sequential testing should be carriedout to confirm baseline values. Lipid Profileon 10-24-2023 Cholesterol [Mass/Vol] 204 mg/dL High 200 [facility] Comment on above: Order Comment: Order Date: 07/25/23 Order Info: [id number] - LIPID Interface Comments: add on Order Info: [id number] - PSA Comments: add on Result Comment: <200 mg/dL Desirable 200-240 mg/dL Borderline >240 mg/dL High Risk Performed By: #### L 500.4100 #### [facility] [address] [place], [address] Cholesterol in HDL [Mass/Vol] 56 mg/dL Normal [facility] Comment on above: Order Comment: Order Date: 07/25/23 Order Info: [id number] - LIPID Interface Comments: add on Order Info: [id number] - PSA Comments: add on Result Comment: The drugs N-Acetylcysteine and Metamizole may falsely depress this assay. Reference Range HDL <40 mg/dL Low HDL Cholesterol HDL >or= 60 mg/dL High HDL Cholesterol Performed By: #### L 500.4100 #### [facility] [address] [place], [address] Cholesterol in LDL [Mass/Vol] 128 mg/dL Normal 0-130 [facility] Comment on above: Order Comment: Order Date: 07/25/23 Order Info: [id number] - LIPID Interface Comments: add on Order Info: [id number] - PSA Comments: add on Performed By: #### L 500.4100 #### [facility] [address] [place], [address] Cholesterol in VLDL [Mass/Vol] 20 mg/dL Normal 5-40 [facility] Comment on above: Order Comment: Order Date: 07/25/23 Order Info: [id number] - LIPID Interface Comments: add on Order Info: [id number] - PSA Comments: add on Performed By: #### L 500.4100 #### [facility] [address] [place], [address] Triglyceride [Mass/Vol] 101 mg/dL Normal [facility] Comment on above: Order Comment: Order Date: 07/25/23 Order Info: [id number] - LIPID Interface Comments: add on Order Info: [id number] - PSA Comments: add on Result Comment: The drugs N-Acetylcysteine and Metamizole may falsely depress this assay. Serum Triglycerides Reference Interval Normal <150 mg/dL Borderline high 150 - 199 mg/dL High 200 - 499 mg/dL Very High > or = 500 mg/dL Performed By: #### L 500.4100 #### [facility] [address] [place], [address] No Panel InformationOrdered By: Baldev Brito on 10-24-2023 VLDL Cholesterol 20 mg/dL 5-40 [facility] PSA,Total - Annual Screenon 10-24-2023 PSA,TOT SCREEN 1.00 ng/mL Normal 0.00-4.00 [facility] Comment on above: Order Comment: Order Date: 07/25/23Order Info: [id number] - LIPIDInterface Comments:add onOrder Info: [id number] - PSAComments: add on Result Comment: This test was performed using the TPSA assay method for the [employer] chemistry system. Values obtained with different assay methods cannot be used interchangably. When changing PSA assays in the course of monitoring a patient, additional sequential testing should be carried out to confirm baseline values. Performed By: #### L 501.9910 ####[facility] [address] [place], [place], [address] Dexa Bone Density Studyon Dexa Bone Density Study [facility] [address] [place] [address] Dexa Bone Density Study MR#: [id number] Acct: [id number] Name: ALEXSANDRA DONOVAN Rep #: [id number] : 1955 M 68 From: Rafi fraga MD PCP: Dr. Baldev Brito MD Status: [facility] Study: Dexa Bone Density Study Date of Exam: 08/25/23 Exam# [id number] Ordering Dr: Baldev Brito MD [id number] STUDY: DUAL ENERGY X-RAY ABSORPTIOMETRY / DXA REASON FOR EXAM: Male, 68 years old. 733.90OsteopeniaBONE DENSITY REASON FOR EXAM TECHNIQUE: Bone Mineral Density (BMD) measurements of lumbar spine and bilateral hips were obtained. COMPARISON: None. FINDINGS: Lumbar Spine (L1-L4): g/cm2 (0.959) / T-score (-0.9) / Z-score (-0.1) Findings are suggestive of normal bone density with a low fracture risk. Left Femur Total: g/cm2 (1.039) / T-score (0.0) / Z-score (0.6) Left Femoral Neck: g/cm2 (0.848) / T-score (-0.6) / Z-score (0.5) Right Femur Total: g/cm2 (1.010) / T-score (-0.2) / Z-score (0.4) Right Femoral Neck: g/cm2 (0.791) / T-score (-1.0) / Z-score (0.1) BD/Dexa Bone Density Study IMPRESSION: The patient is considered normal as outlined below according to World Dragan Organization (WHO) criteria with a low fracture risk. Reference Information: The T-score is the number of standard deviations above or below the standard which is normal for young adults at their peak bone mineral density. The World Health Organization (WHO) interprets the T-scores as follows: Above -1 Normal bone density Between -1 and -2.5 Osteopenia Equal to / or below -2.5 Osteoporosis As a practical clinical guideline, osteopenia may be graded as follows: Mild -1 through -1.5 Moderate -1.6 through -2.0 Severe -2.1 through -2.4 The Z-score is the number of standard deviations above or below age-matched controls. A Z-score of less than -1.5 would be considered abnormal. References: 1. NIH Osteoporosis and Related Bone Diseases www osteo.org 2. International Society for Clinical Densitometry www iscd.org 3. National Osteoporosis Foundation www nof.org Electronically Signed: Rafi Hamm MD at 13:27 EST , CC: Dr. 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 Chloride [Moles/Vol] 105 mmol/L 98-107 [facility] Cholesterol [Mass/Vol] 220 mg/dL <200 [facility] Comment on above: <200 mg/dL Desirable 200-240 mg/dL Borderline >240 mg/dL High Risk Glucose [Mass/Vol] 86 mg/dL 74-106 [facility] Potassium [Moles/Vol] 4.5 mmol/L 3.5-5.1 [facility] Protein [Mass/Vol] 7.1 g/dL 6.4-8.2 [facility] Sodium [Moles/Vol] 137 mmol/L 136-145 [facility] Triglyceride [Mass/Vol] 172 mg/dL <199 [facility] Comment on above: The drugs N-Acetylcy steine and Metamizole may falsely depress this assay.Serum Triglycerides Reference Interval Normal <150 mg/dL Borderline high 150 - 199 mg/dL High 200 - 499 mg/dL Very High > or = 500 mg/dL Laboratory - Chemistry and C hemistry - challengeOrdered By: Baldev Brito on 07-22-2023 ALP [Catalytic activity/Vol] 83 U/L 45-117 [facility] ALT [Catalytic activity/Vol] 30 U/L 16-61 [facility] CO2 [Moles/Vol] 30.0 mmol/L 21.0-32.0 [facility] Globulin (S) [Mass/Vol] 3.3 g/dL 2.2-4.2 [facility] Urea nitrogen/Creatinine [Mass ratio] 5.6 mg/mg 10-20 [facility] No Panel InformationOrdered By: Baldev Brito on 07-22-2023 Estimated GFR (MDRD) Amer 109 mL/min >60 [facility] Comment on above: GFR Calc Estimated GFR (MDRD) Non-Af Amer 90 mL/min >60 [facility] Comment on above: Non- GFR Calc Serum or plasma albumin nelli urement (mass/volume)Ordered By: Baldev Brito on 07-22-2023 Albumin [Mass/Vol] 3.8 g/dL 3.2-5.0 [facility] Serum or plasma albumin/glob ulin mass ratioOrdered By: Baldev Brito on 07-22-2023 Albumin/Globulin [Mass ratio] 1.2 {ratio} 0.9-2.4 [facility] Serum or plasma calcium nelli urement (mass/volume)Ordered By: Baldev Brito on 07-22-2023 Calcium [Mass/Vol] 8.7 mg/dL 8.5-10.1 [facility] Serum or plasma cholesterol in HDL measurement (mass/volume)Ordered By: Baldev Brito on 07-22-2023 Cholesterol in HDL [Mass/Vol] 52 mg/dL >40 [facility] Comment on above: The drugs N-Acetylcy steine and Metamizole may falsely depress this assay. Reference Range HDL <40 mg/dL Low HDL Cholesterol HDL >or= 60 mg/dL High HDL Cholesterol Serum or plasma cholesterol in VLDL measurement (mass/volume)Ordered By: Baldev Brito on 07-22-2023 Cholesterol in VLDL [Mass/Vol] 34 mg/dL 5-40 [facility] Serum or plasma creatinine m easurement (mass/volume)Ordered By: Baldev Brito on 07-22-2023 Creatinine [Mass/Vol] 0.89 mg/dL 0.70-1.30 [facility] Comment on above: The validity of the calculated GFR & GFRAA in patients over 70 years has not been determined. Clinical correlation is essential. Serum or plasma low density lipoprotein (LDL) cholesterol measurement (mass/volume)Ordered By: Baldev Brito on 07-22-2023 Cholesterol in LDL [Mass/Vol] 134 mg/dL 0-130 [facility] Serum or plasma urea nitroge n measurement (mass/volume)Ordered By: Baldev Brito on 07-22-2023 Urea nitrogen [Mass/Vol] 5 mg/dL 7-18 [facility] Thin prep Papanicolaou smear with manual screeningOrdered By: Baldev Brito on 07-22-2023 Thin prep Papanicolaou smear with manual screening 17 U/L 15-37 [facility] Thin prep Papanicolaou smear with manual screening 2 5-15 [facility] CNTHERAPYon 08-14-2019 CNTHERAPY OT/PT/Speech Visit (PTWS) ALEXSANDRA DONOVAN ([id number]) 1955 M Date Time Provider Department 08/14/19 1:15 PM IRMA CAMPBELL (PT) PTWS Date Time Provider Department Center 08/14/2019 1:15 PM [id number], LISA (PT) PTWS [facility] Reason for Visit: PT Discharge [752] Reason For Visit History Recorded Primary Visit Diagnosis:Low back pain without sciatica, unspecified back pain laterality, unspecified chronicity [M54.5] Other Visit Diagnosis:Cervicalgi a [M54.2] Allergies As of Date: 08/14/2019 (No Known Allergies) Date Reviewed: 10/14/2016 Reviewed by: Erick Jackson - Fully Assessed Prescriptions as of 08/14/2019 Sig: METAMUCIL ORAL Take by mouth once daily. ASPIRIN 81 MG TABLET,DELAYED * Take 81 mg by mouth once thalia* Progress Notes: Irma Campbell PT 08/14/2019 1:56 PM Signed Episode Visit Count: 4 Therapist That Will Oversee The Plan Of Care: Irma Campbell Start of Care Date: 07/09/19 Onset Date: 06/27/19 Patient Identified by Name and Date of : Yes REHABILITATION AND SPORTS THERAPY PHYSICAL THERAPY DISCONTINUANCE OF CARE PLAN OF CARE UPDATE: Assessment: Alexsandra Donovan is discontinued from Physical Therapy services due to goal achievement and maximal benefit.. Patient was seen for 4 visits from Start of Care Date: 07/09/19 to 08/14/2019 and treatment included: Therapeutic exercise, Manual therapy and Modalities: Ultrasound. Pt notes that his neck pain has resolved. Just has some stiffness which is usual. He notes that he continues to perform lumbar stretches. He was able to self correct the lateral shift without cues. Pt with improved awareness of postural correction for both lumbar and neck regions and is motivated to continue working on same Goals for Episode of Care: created on 07/09/19 through 09/03/19 updated 08/14/2019 Independent in home exercises./ achieved Maintain proper sitting posture throughout session/ achieved Knowledgeable regarding prophylaxis./ achieved Pt will stand and sit with no postural trunk deviations regarding lateral shifts./ achieved Pt will exhibit painfree cervical ROM/ achieved Pt will demonstrate good knowledge and awareness of proper sitting posture/ achieved SUBJECTIVE: Patient Reason for Visit: Pt notes that he still has a littl bit of stiffness in the neck area which is his usual but feels that the pain is gone. . Spine History Sleep Affected by Pain: Not affected by pain Pain: Pain Pain Level: 1 Pain Location: Neck - Right Description: Aching Post Treatment Pain Post Treatment Pain Level: No Change Post Treatment Pain Location: Neck - Right OBJECTIVE MEASURES WITH LEVEL OF FUNCTION: Posture / Alignment Posture: ( pt able to correct suble left lateral shift. ) Lumbar Spine AROM Lumbar R Side [place]: Normal Lumbar L Side [place]: Normal Cervical Spine AROM Cervical Protrusion: Normal Cervical Flexion: Normal Cervical Extension: Normal Cervical Side-Bend Right: Normal Cervical Side-Bend Left: Normal Cervical Rotation Right: Normal Cervical Rotation Left: Normal TREATMENT: Therapeutic Exercise: 1: right side bend stretch 1x5 2: left arm overhead right LF stretch 1x5 3: bilateral arm elevation stretch x3 4: wall posture perfect. Skilled Intervention: Skilled judgment was provided in selection of appropriate interventions. Correct performance of therapeutic exercises was facilitated with verbal and visual cuing. Billing: [facility]: Therapeutic Exercise ([id number]): 1:1 time: 25minutes (2 units: 23-37 mins) Total time: 25 minutes Irma Campbell PT Normal [facility] PROGRESSon 08-14-2019 PROGRESS HNO ID: [id number] Author: Irma (Pt) Yovanny Service: ? Author Type: Physical Therapist Type: Progress Notes Filed: 08/14/2019 1:56 PM Note Text: Episode Visit Count: 4 Therapist That Will Oversee The Plan Of Care: Irma Campbell Start of Care Date: 07/09/19 Onset Date: 06/27/19 Patient Identified by Name and Date of : Yes REHABILITATION AND SPORTS THERAPY PHYSICAL THERAPY DISCONTINUANCE OF CARE PLAN OF CARE UPDATE: Assessment: Alexsandra Donovan is discontinued from Physical Therapy services due to goal achievement and maximal benefit.. Patient was seen for 4 visits from Start of Care Date: 07/09/19 to 08/14/2019 and treatment included: Therapeutic exercise, Manual therapy and Modalities: Ultrasound. Pt notes that his neck pain has resolved. Just has some stiffness which is usual. He notes that he continues to perform lumbar stretches. He was able to self correct the lateral shift without cues. Pt with improved awareness of postural correction for both lumbar and neck regions and is motivated to continue working on same Goals for Episode of Care: created on 07/09/19 through 09/03/19 updated 08/14/2019 Independent in home exercises./ achieved Maintain proper sitting posture throughout session/ achieved Knowledgeable regarding prophylaxis./ achieved Pt will stand and sit with no postural trunk deviations regarding lateral shifts./ achieved Pt will exhibit painfree cervical ROM/ achieved Pt will demonstrate good knowledge and awareness of proper sitting posture/ achieved SUBJECTIVE: Patient Reason for Visit: Pt notes that he still has a littl bit of stiffness in the neck area which is his usual but feels that the pain is gone. . Spine History Sleep Affected by Pain: Not affected by pain Pain: Pain Pain Level: 1 Pain Location: Neck - Right Description: Aching Post Treatment Pain Post Treatment Pain Level: No Change Post Treatment Pain Location: Neck - Right OBJECTIVE MEASURES WITH LEVEL OF FUNCTION: Posture / Alignment Posture: ( pt able to correct suble left lateral shift. ) Lumbar Spine AROM Lumbar R Side [place]: Normal Lumbar L Side [place]: Normal Cervical Spine AROM Cervical Protrusion: Normal Cervical Flexion: Normal Cervical Extension: Normal Cervical Side-Bend Right: Normal Cervical Side-Bend Left: Normal Cervical Rotation Right: Normal Cervical Rotation Left: Normal TREATMENT: Therapeutic Exercise: 1: right side bend stretch 1x5 2: left arm overhead right LF stretch 1x5 3: bilateral arm elevation stretch x3 4: wall posture perfect. Skilled Intervention: Skilled judgment was provided in selection of appropriate interventions. Correct performance of therapeutic exercises was facilitated with verbal and visual cuing. Billing: [facility]: Therapeutic Exercise ([id number]): 1:1 time: 25minutes (2 units: 23-37 mins) Total time: 25 minutes Irma Campbell PT Normal [facility] CNTHERAPYon 08-08-2019 CNTHERAPY OT/PT/Speech Visit (PTWS) ALEXSANDRA DONOVAN ([id number]) 1955 M Date Time Provider Department 08/08/19 12:00 PM IRMA CAMPBELL (PT) PTWS Date Time Provider Department Center 08/08/2019 12:00 PM [id number], LISA (PT) PTWS [facility] Reason for Visit: Physical Therapy [503] Primary Visit Diagnosis:Low back pain without sciatica, unspecified back pain laterality, unspecified chronicity [M54.5] Other Visit Diagnosis:Cervicalgi a [M54.2] Allergies As of Date: 08/08/2019 (No Known Allergies) Date Reviewed: 10/14/2016 Reviewed by: Erick Jackson - Fully Assessed Prescriptions as of 08/08/2019 Sig: METAMUCIL ORAL Take by mouth once daily. ASPIRIN 81 MG TABLET,DELAYED * Take 81 mg by mouth once thalia* Progress Notes: Irma Campbell PT 08/08/2019 1:03 PM Signed Episode Visit Count: 3 Therapist That Will Oversee The Plan Of Care: Irma Campbell Start of Care Date: 07/09/19 Onset Date: 06/27/19 Patient Identified by Name and Date of : Yes REHABILITATION AND SPORTS THERAPY PHYSICAL THERAPY TREATMENT NOTE ASSESSMENT: Alexsandra Donovan demonstrated improvements in pain and decreased tightness in upper trap. Pt pleased with improvement The patient will continue to benefit from ongoing skilled physical therapy for continued work on neck pain and postural deviations PLAN FOR NEXT VISIT: will assess standing posture. Continue with treament to cervical area . POC update SUBJECTIVE: Patient Reason for Visit: Pt notes that his neck has improved alot. [place] that STM and ultrasound helped alot Pain: Pain Pain Level: 4 Pain Location: Neck - Right Description: Aching Frequency: Intermittent Post Treatment Pain Post Treatment Pain Level: 2 Post Treatment Pain Location: Neck - Right OBJECTIVE MEASURES WITH LEVEL OF FUNCTION: decreased tightness without trigger point today TREATMENT: Therapeutic Exercise: 1: LF stretch 10 sec hold x3 B 2: right levator stretch no hands 10 sec x3 Skilled Intervention: Skilled judgment was provided in selection of appropriate interventions. Correct performance of therapeutic exercises was facilitated with verbal and visual cuing. Manual Therapy: Soft Tissue Mobilization: using lacrosse ball 15 min. seated to right upper trap and cervical region. Skilled Intervention: Manual skills to improve joint mobility, ROM, and decrease pain. Utilized anatomy knowledge of the therapist, and assessment of patient's response to intervention. Modalities: Ultrasound Body Region Treated - Ultrasound: right cervical and upper trap Patient Position: seated Mode: 100% w/cm2: 1.3 MHZ: 1 Minutes: 10 See flowsheet for details regarding treatment. Skilled Intervention: Proper administration and selection of modality based on clinical presentation, deficits, and needs. Patient response monitored throughout treatment. Billing: [facility]: Therapeutic Exercise ([id number]): 1:1 time: 5 minutes (no charge) Manual Therapy ([id number]): 1:1 time: 15 minutes (1 unit: 8-22 mins) Modalities Ultrasound ([id number]) 1:1 time: 10 minutes1 unit: 8-22 mins Total time: 30 minutes [facility] PRO[facility]ESSon 08-08-2019 PROGRESS HNO ID: [id number] Author: Irma (Pt) Campbell Service: ? Author Type: Physical Therapist Type: Progress Notes Filed: 08/08/2019 1:03 PM Note Text: Episode Visit Count: 3 Therapist That Will Oversee The Plan Of Care: Irma Campbell Start of Care Date: 07/09/19 Onset Date: 06/27/19 Patient Identified by Name and Date of : Yes REHABILITATION AND SPORTS THERAPY PHYSICAL THERAPY TREATMENT NOTE ASSESSMENT: Alexsandra Donovan demonstrated improvements in pain and decreased tightness in upper trap. Pt pleased with improvement The patient will continue to benefit from ongoing skilled physical therapy for continued work on neck pain and postural deviations PLAN FOR NEXT VISIT: will assess standing posture. Continue with treament to cervical area . POC update SUBJECTIVE: Patient Reason for Visit: Pt notes that his neck has improved alot. [place] that STM and ultrasound helped alot Pain: Pain Pain Level: 4 Pain Location: Neck - Right Description: Aching Frequency: Intermittent Post Treatment Pain Post Treatment Pain Level: 2 Post Treatment Pain Location: Neck - Right OBJECTIVE MEASURES WITH LEVEL OF FUNCTION: decreased tightness without trigger point today TREATMENT: Therapeutic Exercise: 1: LF stretch 10 sec hold x3 B 2: right levator stretch no hands 10 sec x3 Skilled Intervention: Skilled judgment was provided in selection of appropriate interventions. Correct performance of therapeutic exercises was facilitated with verbal and visual cuing. Manual Therapy: Soft Tissue Mobilization: using lacrosse ball 15 min. seated to right upper trap and cervical region. Skilled Intervention: Manual skills to improve joint mobility, ROM, and decrease pain. Utilized anatomy knowledge of the therapist, and assessment of patient's response to intervention. Modalities: Ultrasound Body Region Treated - Ultrasound: right cervical and upper trap Patient Position: seated Mode: 100% w/cm2: 1.3 MHZ: 1 Minutes: 10 See flowsheet for details regarding treatment. Skilled Intervention: Proper administration and selection of modality based on clinical presentation, deficits, and needs. Patient response monitored throughout treatment. Billing: [facility]: Therapeutic Exercise ([id number]): 1:1 time: 5 minutes (no charge) Manual Therapy ([id number]): 1:1 time: 15 minutes (1 unit: 8-22 mins) Modalities Ultrasound ([id number]) 1:1 time: 10 minutes1 unit: 8-22 mins Total time: 30 minutes SOSA Juan [facility] PROGRESSon 08-07-2019 PROGRESS HNO ID: [id number] Author: Irma (Pt) Yovanny Service: ? Author Type: Physical Therapist Type: Progress Notes Filed: 08/07/2019 12:13 PM Note Text: Episode Visit Count: 2 Therapist That Will Oversee The Plan Of Care: Irma Campbell Start of Care Date: 07/09/19 Onset Date: 06/27/19 Patient Identified by Name and Date of : Yes REHABILITATION AND SPORTS THERAPY PHYSICAL THERAPY TREATMENT NOTE ASSESSMENT: Alexsandra Donovan demonstrated good tolerance to lumbar stretches but developed right sided neck pain 10 days ago. This was addressed today with new order to treat. Pain appears to be muscular in nature with improvements following manual techniques and ultrasound The patient will continue to benefit from ongoing skilled physical therapy for progression of exs , manual and ultrasound Current Frequency: 2x/week Duration: 2 weeks Planned Treatment Interventions: Therapeutic exercise;Manual therapy;Neuromuscula r re-education;Patient /Family/Caregiver Education;Modalities Modalities: Ultrasound PLAN FOR NEXT VISIT: will continue with STM, ultrasound. postural education and strengthening. SUBJECTIVE: Patient Reason for Visit: Pt notes that he has been doing stretching exs and feel that they have been ok. did develop right sided neck pain 10 days ago and has new order to treat this as well. Went to chiropractor with no improvement Has bee trying to stretch which feels better for a little while. Spine History Symptoms Location at Onset: Neck Pain is Better Sometimes: ( stretching) Spine History - Cervical Symptoms Location at Onset: Neck Pain: Pain Pain Level: 7 Pain Location: Neck - Right Description: Aching;Tightness Frequency: Continuous OBJECTIVE MEASURES WITH LEVEL OF FUNCTION: Posture / Alignment Posture: Increased thoracic kyphosis;Decreased lumbar lordosis;Elevated shoulder - right Spine Observations R Cervical Spine Palpation Tenderness: Upper trapezius;Levator scapulae Cervical Spine AROM Cervical AROM determined by: Limitation Cervical Protrusion: Normal Cervical Retraction: Minimal limitation Cervical Flexion: Normal Cervical Extension: Normal Cervical Side-Bend Right: Normal Cervical Side-Bend Left: Normal Cervical Rotation Right: Normal Cervical Rotation Left: Normal Static Testing - Cervical Sustained Cervical Retraction: no effect TREATMENT: Therapeutic Exercise: 1: AROM for LF and rotation x3 B 2: right levator stretch no hands 10 sec x3 5: right side glides ( hip shift)1x5 6: standing right side bending 1x5 Skilled Intervention: Patient was educated in proper exercise technique and purpose for exercises. Reviewed and educated patient on additions/changes for home exercise program Skilled judgment was provided in selection of appropriate interventions. Provided written instruction for home exercise program to facilitate proper performance and compliance. Correct performance of therapeutic exercises was facilitated with verbal and visual cuing. Manual Therapy: Soft Tissue Mobilization: using lacrosse ball 10 min. seated to right upper trap and cervical region. Manual Traction: intermittent supine with pillow pull to tolerance x5 min. Skilled Intervention: Manual skills to improve joint mobility, ROM, and decrease pain. Utilized anatomy knowledge of the therapist, and assessment of patient's response to intervention. Modalities: Ultrasound Body Region Treated - Ultrasound: right cervical and upper trap Patient Position: seated Mode: 100% w/cm2: 1.3 MHZ: 1 Minutes: 10 See flowsheet for details regarding treatment. Skilled Intervention: Proper administration and selection of modality based on clinical presentation, deficits, and needs. Patient response monitored throughout treatment. Self-Usp Management: 1: instruction in postural correction for sitting at computer station. Skilled Intervention: Skilled judgment in the selection of proper modification for activity of daily living/home management based on clinical presentation, deficits, and needs. Physical assistance was provided during education for modifications and patient safety. Billing: [facility]: Therapeutic Exercise ([id number]): 1:1 time: 15 minutes (1 unit: 8-22 mins) Manual Therapy ([id number]): 1:1 time: 15 minutes (1 unit: 8-22 mins) Educ Home Mgmt (35656): 1:1 time: 5 minutes (no charge) Modalities Ultrasound (89521) 1:1 time: 10 minutes1 unit: 8-22 mins Total time: 45 minutes Irma Campbell PT Normal [facility] CNTHERAPYon 08-06-2019 CNTHERAPY OT/PT/Speech Visit (PTWS) ALEXSANDRA DONOVAN ([id number]) 1955 M Date Time Provider Department 08/06/19 4:15 PM IRMA CAMPBELL (PT) PTWS Date Time Provider Department Center 08/06/2019 4:15 PM [id number], LISA (PT) PTWS [facility] Reason for Visit: Physical Therapy [503] Primary Visit Diagnosis:Low back pain without sciatica, unspecified back pain laterality, unspecified chronicity [M54.5] Allergies As of Date: 08/06/2019 (No Known Allergies) Date Reviewed: 10/14/2016 Reviewed by: Erick Jackson - Fully Assessed Prescriptions as of 08/06/2019 Sig: METAMUCIL ORAL Take by mouth once daily. ASPIRIN 81 MG TABLET,DELAYED * Take 81 mg by mouth once thalia* Progress Notes: Irma Campbell PT 08/07/2019 12:13 PM Signed Episode Visit Count: 2 Therapist That Will Oversee The Plan Of Care: Irma Campbell Start of Care Date: 07/09/19 Onset Date: 06/27/19 Patient Identified by Name and Date of : Yes REHABILITATION AND SPORTS THERAPY PHYSICAL THERAPY TREATMENT NOTE ASSESSMENT: Alexsandra Donovan demonstrated good tolerance to lumbar stretches but developed right sided neck pain 10 days ago. This was addressed today with new order to treat. Pain appears to be muscular in nature with improvements following manual techniques and ultrasound The patient will continue to benefit from ongoing skilled physical therapy for progression of exs , manual and ultrasound Current Frequency: 2x/week Duration: 2 weeks Planned Treatment Interventions: Therapeutic exercise;Manual therapy;Neuromuscula r re-education;Patient /Family/Caregiver Education;Modalities Modalities: Ultrasound PLAN FOR NEXT VISIT: will continue with STM, ultrasound. postural education and strengthening. SUBJECTIVE: Patient Reason for Visit: Pt notes that he has been doing stretching exs and feel that they have been ok. did develop right sided neck pain 10 days ago and has new order to treat this as well. Went to chiropractor with no improvement Has bee trying to stretch which feels better for a little while. Spine History Symptoms Location at Onset: Neck Pain is Better Sometimes: ( stretching) Spine History - Cervical Symptoms Location at Onset: Neck Pain: Pain Pain Level: 7 Pain Location: Neck - Right Description: Aching;Tightness Frequency: Continuous OBJECTIVE MEASURES WITH LEVEL OF FUNCTION: Posture / Alignment Posture: Increased thoracic kyphosis;Decreased lumbar lordosis;Elevated shoulder - right Spine Observations R Cervical Spine Palpation Tenderness: Upper trapezius;Levator scapulae Cervical Spine AROM Cervical AROM determined by: Limitation Cervical Protrusion: Normal Cervical Retraction: Minimal limitation Cervical Flexion: Normal Cervical Extension: Normal Cervical Side-Bend Right: Normal Cervical Side-Bend Left: Normal Cervical Rotation Right: Normal Cervical Rotation Left: Normal Static Testing - Cervical Sustained Cervical Retraction: no effect TREATMENT: Therapeutic Exercise: 1: AROM for LF and rotation x3 B 2: right levator stretch no hands 10 sec x3 5: right side glides ( hip shift)1x5 6: standing right side bending 1x5 Skilled Intervention: Patient was educated in proper exercise technique and purpose for exercises. Reviewed and educated patient on additions/changes for home exercise program Skilled judgment was provided in selection of appropriate interventions. Provided written instruction for home exercise program to facilitate proper performance and compliance. Correct performance of therapeutic exercises was facilitated with verbal and visual cuing. Manual Therapy: Soft Tissue Mobilization: using lacrosse ball 10 min. seated to right upper trap and cervical region. Manual Traction: intermittent supine with pillow pull to tolerance x5 min. Skilled Intervention: Manual skills to improve joint mobility, ROM, and decrease pain. Utilized anatomy knowledge of the therapist, and assessment of patient's response to intervention. Modalities: Ultrasound Body Region Treated - Ultrasound: right cervical and upper trap Patient Position: seated Mode: 100% w/cm2: 1.3 MHZ: 1 Minutes: 10 See flowsheet for details regarding treatment. Skilled Intervention: Proper administration and selection of modality based on clinical presentation, deficits, and needs. Patient response monitored throughout treatment. Self-Usp Management: 1: instruction in postural correction for sitting at computer station. Skilled Intervention: Skilled judgment in the selection of proper modification for activity of daily living/home management based on clinical presentation, deficits, and needs. Physical assistance was provided during education for modifications and patient safety. Billing: [facility]: Therapeutic Exercise (59970): 1:1 time: 15 minutes (1 unit: 8-22 mins) Manual Therapy (45882): 1:1 time: 15 minutes (1 unit: 8-22 mins) Educ Home Mgmt (13700): 1:1 time: 5 minutes (no charge) Modalities Ultrasound (57408) 1:1 time: 10 minutes1 unit: 8-22 mins Total time: 45 minutes Irma Campbell PT Normal [facility] CNTHERAPYon 07-09-2019 CNTHERAPY OT/PT/Speech Visit (PTWS) ALEXSANDRA DONOVAN ([id number]) 1955 M Date Time Provider Department 07/09/19 11:45 AM IRMA CAMPBELL (PT) PTWS Date Time Provider Department Center 07/09/2019 11:45 AM [id number], LISA (PT) PTWS [facility] Reason for Visit: PT Eval [747] Patient Education [91] Visit Diagnosis:Low back pain without sciatica, unspecified back pain laterality, unspecified chronicity [M54.5] Allergies As of Date: 07/09/2019 (No Known Allergies) Date Reviewed: 10/14/2016 Reviewed by: Erick Jackson - Fully Assessed Prescriptions as of 07/09/2019 Sig: METAMUCIL ORAL Take by mouth once daily. ASPIRIN 81 MG TABLET,DELAYED * Take 81 mg by mouth once thalia* Progress Notes: Irma Campbell PT 07/09/2019 2:10 PM Signed Episode Visit Count: 1 Therapist That Will Oversee The Plan Of Care: Irma Campbell Start of Care Date: 07/09/19 Onset Date: 06/27/19 Patient Identified by Name and Date of : Yes REHABILITATION AND SPORTS THERAPY PHYSICAL THERAPY EVALUATION PLAN OF CARE: Assessment: Alexsandra Donovan presents with the chief complaint of left lateral shift of trunk discovered by his PCP. Pt denies pain and is active with marathons walking and running some. Usually runs 3 days a week . . He presents with impairments of postural deficits. . He may benefit from skilled therapy services to improve postural deviations with stretching and strengthening. Classification Low Back Pain Subgroup Classification: Specific exercise subgroup: recommended visits 8. Prognosis: Excellent Excellent due to: current objective clinical presentation;good overall health status Goals for Episode of Care: created on 07/09/19 through 09/03/19 Independent in home exercises. Maintain proper sitting posture throughout session Knowledgeable regarding prophylaxis. Pt will stand and sit with no postural trunk deviations regarding lateral shifts. Planned Interventions, Frequency, and Duration: Current Frequency: 1x every other week Duration: 4 weeks Total Number of Visits Planned: 4 Planned Treatment Interventions: Therapeutic exercise;Self-penitentiary management;Neuromusc ular re-education;Patient /Family/Caregiver Education PLAN FOR NEXT VISIT: Will assess standing posture . Add some core strengthening if needed. Patient demonstrates good understanding of plan of care and treatment. The above goals and plan of care were discussed and agreed upon by patient/family. SUBJECTIVE: Alexsandra Donovna is a 64 year old male seen today for Pt felt to have lateral shift of back with flexion of spine. 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 Intake Information: Prescription present Spine History Sleeping Position: Side lying right;Side lying left Pain: Pain Pain Level: 0 Pain Location: Low Back/Lumbar Spine - Left;Low Back/Lumbar Spine - Right Description: Stiffness Frequency: Intermittent Post Treatment Pain Post Treatment Pain Level: 1 Post Treatment Pain Location: Low Back/Lumbar Spine - Left;Low Back/Lumbar Spine - Right Post Treatment Pain Description: Sore OBJECTIVE MEASURES WITH LEVEL OF FUNCTION: Posture / Alignment Posture: Increased thoracic kyphosis;Decreased lumbar lordosis;Elevated shoulder - right Lumbo - Pelvic Alignment: left lateral shift Spine Observations R Lumbar Spine Palpation Tenderness: No tenderness noted L Lumbar Spine Palpation Tenderness: No tenderness noted Lumbar Spine AROM Lumbar Flexion: Minimal limitation Lumbar Extension: Moderate limitation Lumbar R Side [place]: Minimal limitation Lumbar L Side [place]: Normal LE Flexibility Flexibility: Hamstring Flexibility;Quadrice ps Flexibility R Hamstring Flexibility: 68 L Hamstring Flexibility: 70 R Quadriceps Flexibility: 115 L Quadriceps Flexibility: 123 LE Strength R LE Strength: 5/5 L LE Strength: 5/5 Gait Weight Bearing Status: FWB Gait Observation: ( left lateral trunk shift ) Education: Education Learning Preferences: Demonstration;Explan ation;Performance;Pr inted Materials Barriers: None Learning/educational needs: Home exercise program;Plan of Care Education Provided: Yes, see treatment interventions for education provided Education Provided To: Patient Education Mode/Type: Demonstration;Explan ation/Discussion;Lit erature/Printed Materials;Performanc e Response to Education/Teach Back: States/Identifies;Re turn Demonstration TREATMENT: Evaluation Therapeutic Exercise: 1: hoist scapular retraction 2x10 3 weights 2: standing gastroc stretch 30 sec x1 B 3: seated hamstring stretch 30 sec x1 B 4: standing quad stretch 30 sec x3 5: right side glides ( hip shift) 2x5 6: standing right side bending 4x10 7: discussed sitting posture at work and computer Skilled Intervention: Patient was educated in proper exercise technique and purpose for exercises. Skilled judgment was provided in selection of appropriate interventions. Provided written instruction for home exercise program to facilitate proper performance and compliance. Correct performance of therapeutic exercises was facilitated with verbal and visual cuing. Education regarding posture correction Educated patient on rationale for performing exercises in regards to ROM and function Home Exercise Program Assigned: 1: as outlined above Billing: [facility]: Evaluation - Low Complexity (82971) Therapeutic Exercise (47890): 1:1 time: 25 minutes (2 units: 23-37 mins) Total time: 25 minutes Irma Campbell PT Normal [facility] Encounters Encounter Date Encounter Type Care Provider Facility Start: 08-20-2024 Encounter for genera l adult medical examination without abnormal findings Baldev Brito [facility] Start: 07-26-2024 End: 07-26-2024 ambulatory Baldev Brito Facility:[facility] Start: 03-14-2024 End: 03-14-2024 Emergency department patient visit Baldev Brito Facility:[facility] Start: 10-24-2023 End: 10-24-2023 ambulatory [facility] Work Phone: Start: 10-24-2023 End: 10-24-2023 Patient encounter procedure [facility] Start: 10-24-2023 End: 10-24-2023 ambulatory Baldev Brito Facility:[facility] Start: 08-25-2023 End: 08-25-2023 ambulatory [facility] Work Phone: Start: 08-25-2023 End: 08-25-2023 Patient encounter procedure [facility] Work Phone: Start: 08-25-2023 End: 08-25-2023 ambulatory Baldev Brito Facility:[facility] Start: 07-25-2023 End: 07-25-2023 ambulatory [facility] Work Phone: Start: 07-25-2023 End: 07-25-2023 Patient encounter procedure [facility] Work Phone: Start: 07-22-2023 End: 07-22-2023 ambulatory [facility] Work Phone: Start: 07-22-2023 End: 07-22-2023 Patient encounter procedure [facility] Procedures Date Procedure Procedure Detail Performing Clinician Start: 08-25-2023 Dual energy X-ray absorptiometry Start: 07-25-2023 Plain x-ray of elbow Payers Date Payer Category Payer Medicare [id number] 2023 Self-pay [id number] 2015 Unknown MARCELINA [id number] 01 [id number] 2015 Unknown MARCELINA [id number] Unknown [id number] Unknown [id number] Unknown [id number] Unknown [id number] Social History Date Type Detail Facility Tobacco smoking stat [facility] Unknown if ever smoked [facility] Work Phone: Start: 1955 Sex Assigned At Male [facility] Evaluation note Note Date & Type Note Facility Evaluation note No assessment information availa ble [facility] Work Phone: Summary Purpose Family History No Family History Records FoundNo Family History Records Found Advance Directives No Advanced Directives Records FoundNo Advanced Directives Records Found Chief Complaint and Reason for Visit Chief Complaint OSTEO Additional Source Comments (unrecognized sect ion and content) No Status Records FoundNo Status Records Found INFORMATION SOURCE (unrecogn ized section and content) DATE CREATED AUTHOR 09/18/2019 [facility] DATE CREATED AUTHOR AUTHOR'S ORGANIZ ATION 08/22/2024 [facility] Care Teams (unrecognized sec tion and content) Team Status: Active Member Role Status Dates Dr. Baldev Brito MD Family Provider Active Dr. Baldev Brito MD Primary Care Provider Active Team Status: Inactive Member Role Status Dates Dr. Baldev Brito MD Primary Care Provider, Kandi rendon Active Team Status: Active Member Role Status Dates Dr. Baldev Brito MD Primary Care Provide r, Attending Provider, Referring Provider Active Team Status: Inactive Member Role Status Dates Dr. Baldev Brito MD Primary Care Provide r, Attending Provider, Referring Provider Active Goals (unrecognized section and content) Goals may be documented in a n alternate sectionGoals may be documented in an alternate sectionGoals may be documented in an alternate sectionGoals may be documented in an alternate section FOR RECORDS PERTAINING TO PATIENTS WHO ARE [...] BE BASED ON THE PRIMARY CLINICAL RECORDS. [facility] provides no warranty or guarantee of the accuracy or completeness of information in this document.
--- NOTE | 2025-09-05 16:40 | CA.SCORE ---
Calcium Scoring Date of Study:: 09/05/25 Indications Indications: Restratification Coronary Calcium Scoring: High-resolution Computed Tomographic imaging of the chest was performed on [09/05/2025], with particular attention paid to the coronary arteries. Images from the examination were analyzed for the presence and extent of coronary artery calcification , using coronary calcium quantification software. The patient tolerated the procedure well and there were no complications. The results of the coronary calcification analysis are provided below. Findings Coronary Artery Left Main (LM): 37.5 Left Anterior Descending (LAD): 97.7 Left Circumflex (LCX): 0 Right Coronary Artery (RCA): 3.97 Total Agatston Score: 139.17 Percentile Rankin-50 Calcium Scoring Interpretation: Different methods to categorize the overall amount of coronary plaque. Overall amount CAC SIS Visual of coronary plaque P1 Mild -100 <2 1-2 vessels with mild amount of plaque P2 Moderate 101-300 3-4 1-2 vessels with moderate amount, 3 vessels with mild amount of plaque P3 Severe 301-999 5-7 3 vessels with moderate amount, 1 vessel with severe amount of plaque P4 Extensive >1000 >8 2-3 vessels with severe amount of plaque Calcium Score: Moderate: 1-2 vessels w/moderate amt, 3 vessels w/mild amt of plaque Conclusion: Moderate two-vessel plaquing noted
== END | disposition home or self-care (01) ==
LOC: CT 06:44
PROVIDERS: PCP Family Medicine; Referring Provider Family Medicine; Visit Provider Family Medicine
DX: Z71.89 Other specified counseling (principal)
CPT/HCPCS: 75571; 76380